=== PATIENT | female | born 1990 | race Caucasian/White ===

== ENCOUNTER 2024-08-22 22:55 | Inpatient (IN) ==
[2024-08-23] MEDS ORDERED: Lidocaine 1% VIAL 10 MG/ML 30 ML VIAL INJ PRN (00:12)
[2024-08-23] MEDS: Lactated Ringers 1000 ml BAG 1,000 ML IV ONE ×2 (00:45→06:23)
[2024-08-23 01:01] LABS: ABS Basophils 0.1 10^3/uL (0.0-0.1); ABS Eosinophils 0.2 10^3/uL (0.0-0.5); ABS Lymphocytes 2.5 10^3/uL (1.0-4.8); ABS Neutrophils 7.8 10^3/uL (1.5-7.6); Eosinophil % 1.4 %; Hematocrit 35.7 % (35-45); Hemoglobin 11.8 g/dL (11.5-14.3); Lymphocyte % 21.7 %; Mean Corpuscular Hemoglobin 27.9 pg (27-33); Mean Corpuscular Hgb Conc 33.2 g/dL (31-36); Mean Corpuscular Volume 84.1 fL (80-97); Mean Platelet Volume 7.8 fL (7.5-11.2); Platelet Count 344 10^3/uL (150-450); Red Blood Count 4.24 10^6/uL (3.63-4.92); Red Cell Distribution Width 14.2 % (12-17); White Blood Count 11.5 10^3/uL (3.8-11.8)
[2024-08-23] MEDS: Lactated Ringers 1000 ml BAG 1,000 ML IV SCH ×2 (01:45→06:23)
[2024-08-23] MEDS: OBEPIDURAL (200 ML) 200 ML EPIDURAL ONE (02:07)
[2024-08-23 02:09] LABS: Urine Benzodiazepine Screen None Detected (None Detect); Urine Cannabinoids Screen None Detected (None Detect); Urine Opiates Screen None Detected (None Detect)
[2024-08-23] MEDS ORDERED: Sodium Citrate/Citric Acid LIQ 15 ML UDC PO PRN (02:49)
[2024-08-23] MEDS ORDERED: Phenylephrine 40 mcg/mL 10mL (400mcg) SYRINGE IV PUSH PRN ×2 (02:49)
[2024-08-23] MEDS: Buffered Lidocaine 1% SYRIN 1 ml INTRADERM ONE (02:50)
[2024-08-23 03:20] LABS: Urine Appearance Clear; Urine Bilirubin Negative (Negative); Urine Blood Trace (Negative); Urine Color Light-Yellow; Urine Glucose Negative (Negative); Urine Ketones Negative (Negative); Urine Nitrite Negative (Negative); Urine Protein Negative (Negative); Urine Specific Gravity 1.017 (1.002-1.030); Urine Urobilinogen Negative (Negative)
[2024-08-23] MEDS ORDERED: Glycerin ADULT 2.4 gm SUPP PR PRN (05:50)
[2024-08-23] MEDS: OBEPIDURAL (200 ML) 200 ML EPIDURAL SCH (06:23)
[2024-08-23] MEDS: Dibucaine 1% OINT 28.35 GM TUBE PR PRN (06:46)
[2024-08-23] MEDS: Witch Hazel PAD JAR TOPICAL PRN (06:47)
[2024-08-23] MEDS: Oxytocin in LR 20,000 MILLI.UNIT/1,000 ML BAG IV SCH (08:30)
[2024-08-23] MEDS: Oxytocin in LR 20,000 MILLI.UNIT/1,000 ML BAG IV ONE (08:31)
[2024-08-23] MEDS: Lidocaine 1.5% EPI 1:200,000 30 ML SDV ONE (17:59)
[2024-08-24 06:57] LABS: ABS Eosinophils 0.3 10^3/uL (0.0-0.5); ABS Lymphocytes 2.1 10^3/uL (1.0-4.8); ABS Monocytes 1.1 10^3/uL (0.0-0.9); ABS Neutrophils 8.6 10^3/uL (1.5-7.6); Eosinophil % 2.1 %; Hematocrit 31.1 % (35-45); Hemoglobin 10.4 g/dL (11.5-14.3); Lymphocyte % 17.5 %; Mean Corpuscular Hemoglobin 28.5 pg (27-33); Mean Corpuscular Hgb Conc 33.5 g/dL (31-36); Mean Corpuscular Volume 85.1 fL (80-97); Mean Platelet Volume 7.7 fL (7.5-11.2); Platelet Count 304 10^3/uL (150-450); Red Blood Count 3.66 10^6/uL (3.63-4.92); Red Cell Distribution Width 14.4 % (12-17); White Blood Count 12.1 10^3/uL (3.8-11.8)
[2024-08-24] MEDS: Phenylephrine 40 mcg/mL 10mL (400mcg) SYRINGE ONE (19:56)
[2024-08-25 07:59] VITALS: BP 108/72
== END 2024-08-25 10:55 | disposition home or self-care (01) | DRG 560 ==
LOC: MCHOBOUT 22:55 → MCHOB 08-23 00:13
PROVIDERS: ADMIT Midwife; ATTEND Midwife